=== PATIENT | female | born 1980 | race Two or more races ===

== ENCOUNTER 2017-04-15 05:31 | Emergency (ER) | payer MEDICAID ==
[~2017-04-15] VITALS: Ht 154.9 cm; Wt 50.0 kg
[2017-04-15 12:01] VITALS: BP 93/53
== END 2017-04-15 12:53 | disposition home or self-care (01) ==
LOC: ER 05:31
DX: S09.8XXA Other specified injuries of head, initial encounter (principal); S39.82XA Other specified injuries of lower back, initial encounter; M41.9 Scoliosis, unspecified; V43.52XA Car driver injured in collision with other type car in traffic accident, initial encounter; Y93.89 Activity, other specified; Y92.488 Other paved roadways as the place of occurrence of the external cause
CPT/HCPCS: 70486; 72070; 72100; 72125; 81025; 99284